=== PATIENT | male | born 1970 | race Caucasian/White ===

== ENCOUNTER 2016-07-20 08:37 | Day surgery (SDC) | payer BC ==
[~2016-07-20 08:37] MED LIST: Lidocaine 2% 100 MG/5 ML Syringe IVPUSH ONE; Midazolam 1 MG/ML 2 ML SDV IV ONE; Propofol 200 MG/20 ML SDV IV ONE; fentaNYL 100 MCG/2 ML SDV IV ONE
[2016-07-20] MEDS ORDERED: Sodium Chloride 0.9% 10 ML Syringe FLUSH PRN (08:45)
[2016-07-20] MEDS ORDERED: Lactated Ringers 1,000 ML IV SCH (08:45)
--- NOTE | 2016-07-20 11:08 | PCM.OPNOTE ---
- General Post-Op/Procedure Note Date of Surgery/Procedure: 07/20/16 Operative Procedure(s): c scope with bx Findings: descending colon polyp Pre Op Diagnosis: family hx of colon cancer 1st degree relative younger than 55 Post-Op Diagnosis: descending colon polyp [place]est[place] Techn[place] [facility] [place] Surgeon: Justice Mckinley Anesthesia Provider: Maddie Turner Pathology: descending colon polyp Complications: None Condition: Good Free Text/Narrative:: see dictation
[2016-07-20 13:18] VITALS: BP 131/87
--- NOTE | 2016-07-20 17:37 | OR ---
DATE OF OPERATION: 07/20/2016 SURGEON: Justice Mckinley MD PROCEDURE PERFORMED: Colonoscopy with cold forceps biopsy. PREOPERATIVE DIAGNOSIS: Screening for history of colon cancer, first- degree relative diagnosed at below the age of 55. POSTOPERATIVE DIAGNOSIS: Descending colon polyp. INDICATIONS FOR PROCEDURE: This is a 45-year-old white male, who is referred with a family history of colon cancer in mother having in her 40s and he presents now for his initial colonoscopy. DESCRIPTION OF PROCEDURE: IV sedation was administered, digital rectal exam was performed. No marked abnormality was noted. Flexible colonoscope was inserted and advanced to the cecum without difficulty. The following findings were noted. Ascending colon, unremarkable. Transverse colon, unremarkable. Descending colon, a small polypoid lesion, biopsied with cold biopsy forceps and sent for permanent. Sigmoid and rectum unremarkable. Colon was deflated, and the scope was removed. The patient tolerated the procedure well, and was taken to recovery room in good condition. /[id number] /MODL
== END 2016-07-20 12:13 | disposition home or self-care (01) ==
LOC: FB.SDS 08:37
PROVIDERS: ATTEND Surgery
PROC: 0DBM8ZX Excision of Descending Colon, Via Natural or Artificial Opening Endoscopic, Diagnostic (ICD-10-PCS; principal; 2016-07-20)
DX: Z12.11 Encounter for screening for malignant neoplasm of colon (principal); D12.4 Benign neoplasm of descending colon; E11.9 Type 2 diabetes mellitus without complications; Z79.84 Long term (current) use of oral hypoglycemic drugs; G47.33 Obstructive sleep apnea (adult) (pediatric); K21.9 Gastro-esophageal reflux disease without esophagitis; N52.9 Male erectile dysfunction, unspecified; Z79.899 Other long term (current) drug therapy; Z87.891 Personal history of nicotine dependence
CPT/HCPCS: 45380; 82962; 88305; J2250; J2704; J3010; J7120

== ENCOUNTER 2019-10-20 19:35 | Emergency (ER) | payer BC ==
[2019-10-20] MEDS ORDERED: Ondansetron 4 MG Tab.DIS PO ONE (19:36)
[2019-10-20] MEDS ORDERED: Sodium Chloride 0.9% 10 ML Syringe FLUSH PRN (19:56)
[2019-10-20] MEDS ORDERED: Ondansetron 4 MG/2 ML SDV IVPUSH ONE (19:57)
[2019-10-20] MEDS ORDERED: Sodium Chloride 0.9% 1,000 ML IV SCH ×2 (20:00→20:30)
--- NOTE | 2019-10-20 21:03 | EDM.PDOC ---
ED HPI GENERAL MEDICAL PROBLEM - General Chief Complaint: General Stated Complaint: VOMITING Time Seen by Provider: 10/20/19 19:45 Source of Information: Reports: Patient History Limitations: Reports: No Limitations - History of Present Illness INITIAL COMMENTS - FREE TEXT/NARRATIVE: Patient presented to the ED because of generalized body weakness, nausea but no vomiting. There is no cough/cold, fever, chills. Patient also has been working outside the whole day and is drenched in sweat. - Related Data Allergies Allergy/AdvReac Type Severity Reaction Status Date / Time No Known Allergies Allergy Verified 10/20/19 20:45 Home Meds: Home Meds Omeprazole 20 mg PO DAILY 04/24/14 [History] metFORMIN [Glucophage] 500 mg PO BID 04/24/14 [History] Nortriptyline 50 mg PO BEDTIME 10/20/19 [History] Past Medical History Gastrointestinal History: Reports: GERD Musculoskeletal History: Reports: Back Pain, Chronic Endocrine/Metabolic History: Reports: Diabetes, Type II - Past Surgical History HEENT Surgical History: Reports: Adenoidectomy, Tonsillectomy, Other (See Below) Musculoskeletal Surgical History: Reports: Other (See Below) Social & Family History - Family History Family Medical History: Noncontributory - Caffeine Use Caffeine Use: Reports: Soda ED ROS GENERAL - Review of Systems Review Of Systems: See Below Constitutional: Reports: Malaise, Fatigue HEENT: Reports: No Symptoms Respiratory: Reports: No Symptoms Cardiovascular: Reports: No Symptoms Endocrine: Reports: No Symptoms GI/Abdominal: Reports: No Symptoms : Reports: No Symptoms Musculoskeletal: Reports: No Symptoms Skin: Reports: No Symptoms Neurological: Reports: No Symptoms Psychiatric: Reports: No Symptoms Hematologic/Lymphatic: Reports: No Symptoms Immunologic: Reports: No Symptoms ED EXAM, GENERAL - Physical Exam Exam: See Below Exam Limited By: No Limitations General Appearance: Alert, No Apparent Distress Ears: Normal External Exam, Normal Canal, Hearing Grossly Normal Nose: Normal Inspection, Normal Mucosa Throat/Mouth: Normal Inspection, Normal Lips, Normal Teeth, Normal Gums Head: Atraumatic, Normocephalic Neck: Normal Inspection, Supple, Non-Tender, Full Range of Motion Respiratory/Chest: No Respiratory Distress, Lungs Clear, Normal Breath Sounds Cardiovascular: Normal Peripheral Pulses, Regular Rate, Rhythm, No Edema, No Gallop GI/Abdominal: Normal Bowel Sounds, Soft, Non-Tender, No Organomegaly Back Exam: Normal Inspection, Full Range of Motion Course - Vital Signs Text/Narrative:: Labs/EKG was discussed with patient and verbalized full understanding EKG-NSR Crea-3.1 NS 2 L bolus Zofran 4 mg IV x1 I told Juan that she need to be admitted to the hospital for IVF hydration because he had an JENNIFER due to dehydration but he declined. He however agreed to to do IVF hydration as an outpatient. Last Recorded V/S: Last Vital Signs Temp 36.6 C 10/20/19 22:49 Pulse 114 H 10/20/19 22:00 Resp 24 H 10/20/19 22:00 BP 131/68 10/20/19 22:00 Pulse Ox 98 10/20/19 22:00 - Orders/Labs/Meds Orders: Active Orders 24 hr Category Date Time Status Saline Lock Insert [OM.PC] Routine Oth 10/20/19 19:56 Ordered EKG 12 Lead [EK] Routine Ther 10/20/19 19:56 Ordered Labs: Laboratory Tests 10/20/19 10/20/19 Range/Units 20:00 20:00 WBC 19.9 H (4.5-12.0) X10-3/uL RBC 5.66 (4.30-5.75) x10(6)uL Hgb 17.5 (13.5-17.8) g/dL Hct 51.0 (30.0-51.3) % MCV 90.0 (80-96) fL MCH 30.9 (27.7-33.6) pg MCHC 34.3 (32.2-35.4) g/dL RDW 13.0 (11.5-15.5) % Plt Count 259 (125-369) X10(3)uL MPV 9.1 (7.4-10.4) fL Add Manual Diff Yes Neutrophils % (Manual) 78 (46-82) % Band Neutrophils % 1 (0-6) % Lymphocytes % (Manual) 14 (13-37) % Monocytes % (Manual) 7 (4-12) % Sodium 133 L (135-145) mmol/L Potassium 4.6 (3.5-5.3) mmol/L Chloride 92 L (100-110) mmol/L Carbon Dioxide 20 L (21-32) mmol/L BUN 29 H (7-18) mg/dL Creatinine 3.1 H* (0.70-1.30) mg/dL Est Cr Clr Drug Dosing TNP Estimated GFR (MDRD) 22 L (>60) BUN/Creatinine Ratio 9.4 (9-20) Glucose 340 H (80-116) mg/dL Calcium 10.8 H (8.6-10.2) mg/dL Meds: Medications Discontinued Medications Generic Name Dose Route Start Last Admin Trade Name Freq PRN Reason Stop Dose Admin Sodium Chloride 1,000 mls @ 999 mls/hr 10/20/19 20:00 10/20/19 20:05 Normal Saline IV 999 mls/hr ASDIRECTED JULISSA Administration Sodium Chloride 1,000 mls @ 999 mls/hr 10/20/19 20:30 10/20/19 21:05 Normal Saline IV 999 mls/hr ASDIRECTED JULISSA Administration Ondansetron HCl 4 mg 10/20/19 19:57 10/20/19 20:10 Zofran IVPUSH 10/20/19 19:58 4 mg ONETIME ONE Administration Ondansetron HCl 16 mg 10/20/19 19:36 Zofran Odt PO 10/20/19 19:37 .STK-MED ONE Sodium Chloride 10 ml 10/20/19 19:56 Saline Flush FLUSH ASDIRECTED PRN Keep Vein Open Departure - Departure Time of Disposition: 22:30 Disposition: Home, Self-Care 01 Condition: Good Clinical Impression: Dehydration, JENNIFER (acute kidney injury) - Discharge Information Instructions: Acute Kidney Injury, Adult, Dehydration, Adult, [id number] Referrals: Marvin Noyola MD [Primary Care Provider] - Forms: ED Department Discharge Additional Instructions: Please read discharge instructions on dehydration and acute kidney injury Increase oral fluids at least 2-4 liters a day Return to the ED tomorrow for IVF hydration and labs. - My Orders Last 24 Hours: My Active Orders 10/20/19 19:56 Saline Lock Insert [OM.PC] Routine EKG 12 Lead [EK] Routine - Assessment/Plan Last 24 Hours: My Active Orders 10/20/19 19:56 Saline Lock Insert [OM.PC] Routine EKG 12 Lead [EK] Routine
[2019-10-20 22:54] VITALS: BP 131/68; PULSE 114
== END 2019-10-20 22:15 | disposition home or self-care (01) ==
LOC: FB.ED 19:35
DX: E86.0 Dehydration (principal); N17.9 Acute kidney failure, unspecified; K21.9 Gastro-esophageal reflux disease without esophagitis; E11.9 Type 2 diabetes mellitus without complications; Z79.899 Other long term (current) drug therapy
CPT/HCPCS: 36415; 80048; 85025; 93005; 96360; 96361; 99284; A9270; J2405; J7030

== ENCOUNTER 2021-06-26 11:57 | Day surgery (SDC) | payer BC ==
[~2021-06-26 11:57] MED LIST changes: +Lactated Ringers 1,000 ML IV SCH; -Lidocaine 2% 100 MG/5 ML Syringe IVPUSH ONE; -Midazolam 1 MG/ML 2 ML SDV IV ONE; -Propofol 200 MG/20 ML SDV IV ONE; +Sodium Chloride 0.9% 10 ML Syringe FLUSH PRN; +ceFAZolin 2 GM in Premix Bag 1 BAG IV ONE; -fentaNYL 100 MCG/2 ML SDV IV ONE
[2021-06-26] MEDS ORDERED: fentaNYL 100 MCG/2 ML SDV IV ONE (11:58)
[2021-06-26] MEDS ORDERED: Dexmedetomidine 200 MCG/2 ML SDV IV ONE (11:58)
[2021-06-26] MEDS ORDERED: Midazolam 1 MG/ML 2 ML SDV IV ONE (11:58)
[2021-06-26] MEDS ORDERED: Ketamine 500 mg/10 ML MDV IV ONE (11:58)
[2021-06-26] MEDS ORDERED: Propofol 200 MG/20 ML SDV IV ONE (11:58)
[2021-06-26] MEDS ORDERED: ceFAZolin 2 GM in Premix Bag 1 BAG IV ONE (14:00)
[2021-06-26] MEDS ORDERED: Bupivacaine 0.5% 30 ML SDV INJECT ONE (14:12)
[2021-06-26] MEDS ORDERED: Lidocaine 1% with EPINEPHrine 1:100,000 20 ML MDV INJECT ONE (14:13)
[2021-06-26 15:28] VITALS: BP 116/72; PULSE 90
== END 2021-06-26 15:30 | disposition home or self-care (01) ==
LOC: FB.SDS 11:57
PROVIDERS: ATTEND Surgery
DX: M79.89 Other specified soft tissue disorders (principal); E78.00 Pure hypercholesterolemia, unspecified; K21.9 Gastro-esophageal reflux disease without esophagitis; E11.40 Type 2 diabetes mellitus with diabetic neuropathy, unspecified; E66.9 Obesity, unspecified; G47.33 Obstructive sleep apnea (adult) (pediatric); Z88.5 Allergy status to narcotic agent; Z79.899 Other long term (current) drug therapy; Z79.84 Long term (current) use of oral hypoglycemic drugs; Z98.890 Other specified postprocedural states
CPT/HCPCS: 00400-QZ; 82947; 88304; J0690; J2250; J2704; J3010; J3490; J7120

== ENCOUNTER 2021-08-17 07:52 | Day surgery (SDC) | payer BC ==
[~2021-08-17 07:52] MED LIST changes: -ceFAZolin 2 GM in Premix Bag 1 BAG IV ONE
[2021-08-17] MEDS ORDERED: Midazolam 1 MG/ML 2 ML SDV IV ONE (07:53)
[2021-08-17] MEDS ORDERED: Propofol 200 MG/20 ML SDV IV ONE (07:53)
[2021-08-17 10:32] VITALS: BP 142/84; PULSE 92
== END 2021-08-17 10:20 | disposition home or self-care (01) ==
LOC: FB.SDS 07:52
PROVIDERS: ATTEND Surgery
DX: Z12.11 Encounter for screening for malignant neoplasm of colon (principal); D12.0 Benign neoplasm of cecum; K40.90 Unilateral inguinal hernia, without obstruction or gangrene, not specified as recurrent; E11.9 Type 2 diabetes mellitus without complications; G47.33 Obstructive sleep apnea (adult) (pediatric); K21.9 Gastro-esophageal reflux disease without esophagitis; E66.9 Obesity, unspecified; Z79.84 Long term (current) use of oral hypoglycemic drugs; Z79.899 Other long term (current) drug therapy; Z98.890 Other specified postprocedural states; Z87.891 Personal history of nicotine dependence; Z80.0 Family history of malignant neoplasm of digestive organs; Z68.34 Body mass index [BMI] 34.0-34.9, adult
CPT/HCPCS: 00812-QZ; 88305; J2250; J2704; J7120

== ENCOUNTER 2022-10-16 06:29 | Day surgery (SDC) | payer BC ==
[~2022-10-16 06:29] MED LIST changes: +ceFAZolin 2 GM Vial IVPUSH ONE
[2022-10-16] MEDS ORDERED: Midazolam 1 MG/ML 2 ML SDV IV ONE (06:30)
[2022-10-16] MEDS ORDERED: fentaNYL 100 MCG/2 ML SDV IV ONE (06:30)
[2022-10-16] MEDS ORDERED: Lidocaine 1% with EPINEPHrine 1:100,000 20 ML MDV INJECT ONE (07:45)
[2022-10-16] MEDS ORDERED: Bupivacaine 0.5% 30 ML SDV INJECT ONE (07:45)
[2022-10-16] MEDS ORDERED: Lidocaine 2% with EPINEPHrine 1:100,000 20 ML MDV INJECT ONE (07:49)
[2022-10-16 11:49] VITALS: BP 125/98; PULSE 102
== END 2022-10-16 08:56 | disposition home or self-care (01) ==
LOC: FB.SDS 06:29
PROVIDERS: ATTEND Surgery
DX: K13.29 Other disturbances of oral epithelium, including tongue (principal); K14.8 Other diseases of tongue; R49.0 Dysphonia; R09.89 Other specified symptoms and signs involving the circulatory and respiratory systems; E11.9 Type 2 diabetes mellitus without complications; K21.9 Gastro-esophageal reflux disease without esophagitis; K44.9 Diaphragmatic hernia without obstruction or gangrene; G47.30 Sleep apnea, unspecified; Z79.84 Long term (current) use of oral hypoglycemic drugs; Z88.5 Allergy status to narcotic agent; Z79.899 Other long term (current) drug therapy; Z87.891 Personal history of nicotine dependence
CPT/HCPCS: 00170; 41112; 82947; 88305; 88312; 88325; J0690; J2250; J3010; J3490; J7120